=== PATIENT | female | born 1985 | race African-American/Black ===

== ENCOUNTER 2024-02-24 11:55 | Outpatient (CLI) | payer BC | END 2024-02-24 11:56 | disposition home or self-care (01) | LOC: CSHRAD 11:55 | PROVIDERS: ATTEND Family Medicine | DX: S99.922D Unspecified injury of left foot, subsequent encounter (principal); S92.355A Nondisplaced fracture of fifth metatarsal bone, left foot, initial encounter for closed fracture ==